=== PATIENT | male | born 1960 ===

== ENCOUNTER 2016-11-12 10:38 | Inpatient (IN) | payer BC ==
[2016-11-12] MEDS ORDERED: Enalaprilat 2.5 MG/2 ML IV ONE (11:20)
--- NOTE | 2016-11-12 11:23 | C.PDOC ---
History Of Present Illness 56 year old male presents to the ED with complaints of sudden onset of left facial droop at approximately 3:30 this morning. He also presents with elevated blood pressure and notes he is compliant with blood pressure medication. Patient 's doctor is Dr. Trivedi. Patient denies trauma, headache, chest pain, dizziness, abdominal pain, fever, nausea, or vomiting. Chief Complaint (Nursing): High Blood Pressure History Per: Patient, Family History/Exam Limitations: no limitations Onset/Duration Of Symptoms: Hrs Current Symptoms Are (Timing): Still Present Associated Symptoms: denies: Chest Pain, Dizziness, Blurred Vision Exacerbating Factor(s): Pos: None Recent travel outside of the [place]: No Past Medical History Reviewed: Historical Data, Nursing Documentation, Vital Signs Vital Signs: Last Vital Signs Temp 98.4 F 11/12/16 18:04 Pulse 62 11/12/16 18:51 Resp 16 11/12/16 18:51 BP 162/94 H 11/12/16 18:51 Pulse Ox 97 11/12/16 18:51 - Medical History PMH: HTN Family History: States: Unknown Family Hx - Social History Hx Alcohol Use: No Hx Substance Use: No - Immunization History Hx Influenza Vaccination: No Review Of Systems Constitutional: Positive for: Other (Left sided facial droop ). Negative for: Fever, Chills Cardiovascular: Negative for: Chest Pain, Palpitations Respiratory: Negative for: Cough, Shortness of Breath Gastrointestinal: Negative for: Nausea, Vomiting Neurological: Negative for: Confusion, Headache, Dizziness Physical Exam - Physical Exam Appears: Non-toxic, No Acute Distress Skin: Warm, Dry Head: Atraumatic Eye(s): bilateral: Normal Inspection, PERRL, EOMI Ear(s): Bilateral: Normal Oral Mucosa: Moist Neck: Supple Chest: Symmetrical, No Deformity Cardiovascular: Other (Patient is bradycardic ) Extremity: Normal ROM, No Tenderness Neurological/Psych: Oriented x3, Normal Speech ED Course And Treatment - Laboratory Results Result Diagrams: 11/12/16 11:30 11/12/16 11:30 ECG: Interpreted By Me, Viewed By Me ECG Rhythm: Sinus Bradycardia, ST/T Changes ECG Interpretation: No Acute Changes Rate From EC O2 Sat by Pulse Oximetry: 95 (room air ) - Other Rad CXR X-Ray: Viewed By Me, Read By Radiologist Interpretation: Accession No. : [id number]. Patient Name / ID : ABHIJEET VASQUEZ / [id number]. Exam Date : 11/12/2016 11:18:42 ( Approved ). Study Comment : Sex / Age : M / 56Y. Creator : Adarsh Ballard MD. Dictator : Adarsh Ballard MD. Band Reamer Machine Operator : Mutual Fund Accountant : Adarsh Ballard MD. Approver2 : Report Date : 11/12/2016 12:53:54. My Comment : . PROCEDURE: CHEST RADIOGRAPH, 1 VIEW. HISTORY: SOB. COMPARISON: None available. FINDINGS: LUNGS: Clear. PLEURA: No pneumothorax or pleural fluid seen. CARDIOVASCULAR: Technical magnification may similarly cardiomegaly though intrinsic cardiac enlargement is not excluded. No pulmonary vascular derangement identified nevertheless. OSSEOUS STRUCTURES: No significant abnormalities. VISUALIZED UPPER ABDOMEN: Normal. OTHER FINDINGS: None. IMPRESSION: No acute infiltrate or pleural effusion identified. Probable portal technical magnification of the cardiac silhouette though cardiomegaly is not completely excluded. Clinically correlate. - CT Scan/US CT HEAD WITHOUT CONTRAST Other Rad Studies (CT/US): Read By Radiologist, Radiology Report Reviewed CT/US Interpretation: HISTORY: left facial palsy, elevated BP. COMPARISON: None available. TECHNIQUE: Axial computed tomography images were obtained through the head/brain without intravenous contrast. Radiation dose: Total exam DLP = 902 mGy-cm. This CT exam was performed using one or more of the following dose reduction techniques: Automated exposure control, adjustment of the mA and/or kV according to patient size, and/or use of iterative reconstruction technique. FINDINGS: HEMORRHAGE: No intracranial hemorrhage. BRAIN: No mass effect or edema. Overall density throughout the bethea and white matter structures above and below the tentorium appears grossly nonfocal. Artifactual skullbase obscure the inferior margins of lateral religion lobe somewhat, particularly at the left side. VENTRICLES: Unremarkable. No hydrocephalus. CALVARIUM: Unremarkable. PARANASAL SINUSES: Unremarkable as visualized. No significant inflammatory changes. MASTOID AIR CELLS: Unremarkable as visualized. No inflammatory changes. OTHER FINDINGS: None. IMPRESSION: Normal CT of the Head. If symptoms persist or worsen consider follow-up MRI or CT is advised. Progress Note: Head CT, blood work, labs, and CXR were ordered. Patient was given enalopril IV x 2, BP still elevated. Catapres was given. Case was d/w pt' s PMD who instructed to keep patient obs to service, Case was d /w who is unavailable now and requested to call . was called, case discussed. Patient was accepted to [facility] for observation. Acyclovir and Prednisone po were given. Disposition - Disposition Disposition: HOSPITALIZED Disposition Time: 17:01 Condition: FAIR - Clinical Impression Clinical Impression: Uncontrolled hypertension, Facial paralysis/[place] palsy - Scribe Statement The provider has reviewed the documentation as recorded by the Scribe Teresa Alex All medical record entries made by the Scribe were at my direction and personally dictated by me. I have reviewed the chart and agree that the record accurately reflects my personal performance of the history, physical exam, medical decision making, and the department course for this patient. I have also personally directed, reviewed, and agree with the discharge instructions and disposition. Decision To Admit - Pt Status Changed To: Hospital Disposition Of: Observation - . Bed Request Type: Regular Admitting Physician: Raz Ogden Patient Diagnosis: Uncontrolled hypertension, Facial paralysis/[place] palsy
[2016-11-12] MEDS ORDERED: Enalaprilat 2.5 MG/2 ML IV STA ×2 (11:34→13:19)
[2016-11-12 11:37] LABS: BASO % 0.6 % (0.0-2.0); EOS % 1.2 % (0.0-4.0); HEMATOCRIT 48.8 % (35.0-51.0); LYMPH # 1.4 K/uL (1.0-4.3); LYMPH % 37.2 % (20.0-40.0); MEAN CELL VOLUME 92.7 fL (80.0-94.0); MEAN CORPUSCULAR HEMOGLOBIN 30.8 pg (27.0-31.0); MEAN CORPUSCULAR HGB CONC 33.2 g/dL (33.0-37.0); MEAN PLATELET VOLUME 9.4 fL (7.2-11.7); MONO # 0.5 K/uL (0.0-0.8); MONO % 14.1 % (0.0-10.0); NRBC % 0.1 % (0.0-2.0); RED CELL DISTRIBUTION WIDTH 14.3 % (11.5-14.5); WHITE BLOOD COUNT 3.7 K/uL (4.8-10.8)
[2016-11-12] MEDS ORDERED: Enalaprilat 2.5 MG/2 ML ONE ×2 (11:37→14:50)
[2016-11-12 11:44] LABS: CHLORIDE 103 mmol/L (98-107); POTASSIUM 3.9 mmol/L (3.6-5.2); SODIUM 144 mmol/L (132-148)
[2016-11-12 11:46] LABS: ALB/GLOB RATIO 1.3 (1.0-2.1); ALKALINE PHOSPHATASE 69 U/L (38-126); AST/SGOT 41 U/L (17-59); BILIRUBIN,TOTAL 0.7 mg/dL (0.2-1.3); CARBON DIOXIDE 33 mmol/L (22-30); GFR AFRICAN-AMERICAN 59; TOTAL PROTEIN 7.7 g/dL (6.3-8.3)
[2016-11-12 11:47] LABS: ALT/SGPT 45 U/L (21-72); BLOOD UREA NITROGEN 15 mg/dL (9-20); CALCIUM 9.6 mg/dl (8.6-10.4); GLUCOSE,RANDOM 89 mg/dL (75-110)
--- NOTE | 2016-11-12 12:26 | CT ---
PROCEDURE: CT HEAD WITHOUT CONTRAST. HISTORY: left facial palsy, elevated BP COMPARISON: None available. TECHNIQUE: Axial computed tomography images were obtained through the head/brain without intravenous contrast. Radiation dose: Total exam DLP = 902 mGy-cm. This CT exam was performed using one or more of the following dose reduction techniques: Automated exposure control, adjustment of the mA and/or kV according to patient size, and/or use of iterative reconstruction technique. FINDINGS: HEMORRHAGE: No intracranial hemorrhage. BRAIN: No mass effect or edema. Overall density throughout the bethea and white matter structures above and below the tentorium appears grossly nonfocal. Artifactual skullbase obscure the inferior margins of lateral buddhism lobe somewhat, particularly at the left side. VENTRICLES: Unremarkable. No hydrocephalus. CALVARIUM: Unremarkable. PARANASAL SINUSES: Unremarkable as visualized. No significant inflammatory changes. MASTOID AIR CELLS: Unremarkable as visualized. No inflammatory changes. OTHER FINDINGS: None. IMPRESSION: Normal CT of the Head. If symptoms persist or worsen consider follow-up MRI or CT is advised.
--- NOTE | 2016-11-12 12:55 | RAD ---
PROCEDURE: CHEST RADIOGRAPH, 1 VIEW HISTORY: SOB COMPARISON: None available. FINDINGS: LUNGS: Clear. PLEURA: No pneumothorax or pleural fluid seen. CARDIOVASCULAR: Technical magnification may similarly cardiomegaly though intrinsic cardiac enlargement is not excluded. No pulmonary vascular derangement identified nevertheless. OSSEOUS STRUCTURES: No significant abnormalities. VISUALIZED UPPER ABDOMEN: Normal. OTHER FINDINGS: None. IMPRESSION: No acute infiltrate or pleural effusion identified. Probable portal technical magnification of the cardiac silhouette though cardiomegaly is not completely excluded. Clinically correlate.
[2016-11-12] MEDS ORDERED: Nitroglycerin 2% Ointment Foilpak UD TOP STA (18:07)
--- NOTE | 2016-11-12 20:35 | CP.PCM.CON ---
History of Present Illness - History of Present Illness History of Present Illness: 56 year old male presents to the ED with complaints of sudden onset of left facial droop at approximately 3:30 this morning. He also presents with elevated blood pressure and notes he is compliant with blood pressure medication. Patient's doctor is Dr. Trivedi. Patient denies trauma, headache, chest pain, dizziness, abdominal pain, fever, nausea, or vomiting. Condition started today with Headache. Chief Complaint (Nursing): Uncontrolled High Blood Pressure, Left Facial Palsy. History Per: Patient, Family History/Exam Limitations: no limitations Onset/Duration Of Symptoms: Hrs Current Symptoms Are (Timing): Still Present Associated Symptoms: denies: Chest Pain, Dizziness, Blurred Vision Exacerbating Factor(s): Pos: None Recent travel outside of the [place]: No Past Medical History Reviewed: Historical Data, Nursing Documentation, Vital Signs Vital Signs: Last Vital Signs Temp 98.4 F 11/12/16 18:04 Pulse 62 11/12/16 18:51 Resp 16 11/12/16 18:51 BP 162/94 H 11/12/16 18:51 Pulse Ox 97 11/12/16 18:51 - Medical History PMH: HTN, CVA treated at [facility] 4 years ago. Family History: Mother has a History of CVA and DM - Social History Hx Alcohol Use: No Hx Substance Use: No - Immunization History Hx Influenza Vaccination: No Review Of Systems Constitutional: Positive for: Other (Left sided facial droop ). Negative for: Fever, Chills Cardiovascular: Negative for: Chest Pain, Palpitations Respiratory: Negative for: Cough, Shortness of Breath Gastrointestinal: Negative for: Nausea, Vomiting Neurological: Negative for: Confusion, Headache, Dizziness ECG Rhythm: Sinus Bradycardia, ST/T Changes ECG Interpretation: No Acute Changes Rate From EC CT Brain IMPRESSION: Normal CT of the Head. Past Patient History - Past Social History Smoking Status: Never Smoked - CARDIAC Hx Hypertension: Yes - PSYCHIATRIC Hx Substance Use: No - SURGICAL HISTORY Hx Surgeries: No - ANESTHESIA Hx Anesthesia: No Meds Allergies/Adverse Reactions: Allergies Allergy/AdvReac Type Severity Reaction Status Date / Time No Known Allergies Allergy Verified 11/12/16 10:40 - Medications Medications: Current Medications Acyclovir (Zovirax) 400 mg PO BID [facility] Amlodipine Besylate (Norvasc) 10 mg PO DAILY [facility] Enoxaparin Sodium (Lovenox) 40 mg SC DAILY [facility] Losartan Potassium (Cozaar) 100 mg PO DAILY [facility] Prednisone (Prednisone Tab) 40 mg PO DAILY [facility] Stop: 11/17/16 23:59 Rosuvastatin Calcium (Crestor) 20 mg PO HS [facility] Physical Exam - Neurological Exam Additional comments: Muscular man, exercising daily. He is a [employer] in [place], [place] Mental Status: Awake, Alert, Oriented x 3, normal memory X3, normal cognition, fluent coherent speech. Cranial Nerves II to XII; Left Facial Palsy, nasolabial folds are poorly seen on the left side. Pupils are equal reactive to light, normal extra ocular eye movements. Tongue is central. Normal swallowing Feeling change in his taste. Motor: Normal Tone, Power, Muscle Bulk DTR 0 to 1/4 Toes are down going by plantar stimulation. Sensory: No Deficits Cerebellar: Normal FNT Stature and Gait: Reported to be Normal. Results - Vital Signs Recent Vital Signs: Last Vital Signs Temp 98.4 F 11/12/16 18:04 Pulse 84 11/12/16 20:06 Resp 18 11/12/16 20:06 BP 174/89 H 11/12/16 20:06 Pulse Ox 95 11/12/16 20:06 - Labs Result Diagrams: 11/12/16 11:30 11/12/16 11:30 Assessment & Plan (1) Facial paralysis/[place] palsy Assessment and Plan: Acute Left Side Facial Palsy Status: Acute (2) Uncontrolled hypertension Status: Acute (3) CVA (cerebral vascular accident) Assessment and Plan: Old history of CVA versus TIA 4 years ago. CVA must be ruled out and all SURGERY NURSE causes of facial palsy need to be ruled out including Central Nervous system masses. Work up for CVA and Seizures. Status: Acute
[2016-11-13 10:07] LABS: THYROID STIMULATING HORMONE 0.91 mIU/L (0.46-4.68)
[2016-11-13] MEDS: Enoxaparin 40 mg Syringe SC SCH (10:33)
--- NOTE | 2016-11-13 23:42 | CP.PCM.PN ---
Subjective - Date & Time of Evaluation Date of Evaluation: 11/13/16 Time of Evaluation: 21:00 - Subjective Subjective: No change in his condition. His labs show Normal Lipid Profile and non reactive RPR. He is receiving his Oral Prednisone and Oral Acyclovir. No hemiparesis. Objective - Vital Signs/Intake and Output Vital Signs (last 24 hours): Temp Pulse Resp BP Pulse Ox 98.2 F 88 20 146/76 96 11/13/16 15:06 11/13/16 16:51 11/13/16 15:06 11/13/16 16:51 11/13/16 15:06 Intake and Output: 11/13/16 11/14/16 18:59 06:59 Intake Total 480 400 Balance 480 400 - Medications Medications: Current Medications Acyclovir (Zovirax) 400 mg PO BID [facility] Last Admin: 11/13/16 17:33 Dose: 400 mg Amlodipine Besylate (Norvasc) 10 mg PO DAILY [facility] Last Admin: 11/13/16 10:33 Dose: 10 mg Enoxaparin Sodium (Lovenox) 40 mg SC DAILY [facility] Last Admin: 11/13/16 10:33 Dose: Not Given Losartan Potassium (Cozaar) 100 mg PO DAILY [facility] Last Admin: 11/13/16 10:33 Dose: 100 mg Pneumococcal Polyvalent Vaccine (Pneumovax 23 Vaccine) 0.5 ml IM .ONCE ONE Stop: 11/15/16 10:01 Prednisone (Prednisone Tab) 40 mg PO DAILY [facility] Stop: 11/17/16 23:59 Last Admin: 11/13/16 10:33 Dose: 40 mg Rosuvastatin Calcium (Crestor) 20 mg PO HS [facility] Last Admin: 11/13/16 21:43 Dose: 20 mg - Labs Labs: PT 11.1 SECONDS (9.7-12.2) 11/12/16 11:30 INR 1.0 11/12/16 11:30 APTT 35 SECONDS (21-34) H 11/12/16 11:30 Assessment and Plan (1) Facial paralysis/[place] palsy Status: Acute (2) Uncontrolled hypertension Status: Acute (3) CVA (cerebral vascular accident) Status: Acute
--- NOTE | 2016-11-13 23:49 | CP.PCM.HP ---
Past Patient History - Past Medical History & Family History Past Medical History?: Yes - Past Social History Smoking Status: Never Smoked - CARDIAC Hx Hypertension: Yes - PULMONARY Hx Respiratory Disorders: No - NEUROLOGICAL Hx Neurological Disorder: Yes Other/Comment: Pt states he had a previous stroke in [address] [facility], but unsure of what type of stoke - MUSCULOSKELETAL/RHEUMATOLOGICAL Hx Falls: No - PSYCHIATRIC Hx Substance Use: No - SURGICAL HISTORY Hx Surgeries: Yes Hx Herniorrhaphy: Yes - ANESTHESIA Hx Anesthesia: Yes Hx Anesthesia Reactions: No Hx Malignant Hyperthermia: No Meds Allergies/Adverse Reactions: Allergies Allergy/AdvReac Type Severity Reaction Status Date / Time No Known Allergies Allergy Verified 11/12/16 10:40 Results - Vital Signs Recent Vital Signs: Last Vital Signs Temp 98.2 F 11/13/16 15:06 Pulse 88 11/13/16 16:51 Resp 20 11/13/16 15:06 BP 146/76 11/13/16 16:51 Pulse Ox 96 11/13/16 15:06 - Labs Result Diagrams: 11/12/16 11:30 11/12/16 11:30 Labs: Laboratory Results - last 24 hr 11/13/16 11/13/16 09:11 09:11 Triglycerides 81 Cholesterol 185 LDL Cholesterol Direct 123 HDL Cholesterol 51 TSH 3rd Generation 0.91 RPR Nonreactive
--- NOTE | 2016-11-14 03:32 | HP ---
CHIEF COMPLAINT: Left-sided facial droop. HISTORY OF PRESENT ILLNESS: This is a 56-year-old male with history of hypertension, noncompliant with his diet, medications and followup. Around 3:30 in the morning, he developed acute onset of left-sided facial droop and the patient had hard time closing his left eye, his face has twisted to the right side and he is unable to hold liquids on left side of the mouth and he has altered taste in the mouth. He is a good historian. He denied any history of seizure-like activity. He denied any tingling, numbness, paresthesia of the arm and legs, but he had numbness of the face and he feels irritation in the eyes. He denies any past history of Lyme's disease. He denied any history of rash. He denies any fevers, chills, or rigors. He denied any nausea, vomiting, or diarrhea. He denied any polyuria, polydipsia, polyplegia. He denied any history of hematuria or pyuria. There is no history of trauma, fall, or loss of consciousness. There is no cough or sore throat or runny nose. PAST SURGICAL HISTORY: CVA treated 4 years ago, hypertension. SOCIAL HISTORY: Nonsmoker, non-ETOH user. CURRENT MEDICATIONS: Unknown. PHYSICAL EXAMINATION: GENERAL: A middle aged male in no acute distress with facial asymmetry, face has twisted to right side with flat left nasolabial fold. VITAL SIGNS: Blood pressure is 174/89, pulse 64, respiratory rate 18 and temperature is 98.4. SKIN: Warm. No bruising. No purpura. No petechiae. HEENT: Atraumatic and normocephalic. Negative pallor. Negative jaundice. Extraocular movements are intact. NECK: Supple. Flat neck veins. No JVD. No lymph node. No thyromegaly. No carotid bruits. CHEST: Chest wall bilaterally symmetrical expansion. LUNGS: Bilaterally clear. No rales, no rhonchi. CARDIOVASCULAR: S1 and S2 regular. No heaves noted. ABDOMEN: Soft and nontender. Bowel sounds are positive. RECTAL: No masses. No bleeding. EXTREMITIES: No clubbing, cyanosis or edema. CENTRAL NERVOUS SYSTEM: Awake, alert, and oriented x3. Has left-sided weakness, although his face is twisted to right side, unable to close left eye. ASSESSMENT: 1. Left seventh nerve palsy, slight Lester's palsy. 2. Hypertension, uncontrolled. PLAN: Admit, neuro checks, detailed orders written. I personally seen and examined the patient. History of present illness obtained. Raz Ogden MD
[2016-11-14] MEDS: Enoxaparin 40 mg Syringe SC SCH (09:20)
[2016-11-14] MEDS ORDERED: Nitroglycerin 2% Ointment Foilpak UD TOP ONE (17:10)
--- NOTE | 2016-11-14 19:22 | CP.PCM.PN ---
Subjective - Date & Time of Evaluation Date of Evaluation: 11/14/16 Time of Evaluation: 19:15 - Subjective Subjective: He is running a Systolic high Blood Pressure. His left facial weakness is almost the same. He needs Physical Therapy and to exercise. His Hb A1C is normal and PSA is normal. More tests are to follow, including MRI Brain, EEG, Carotid Doppler, Hepatitis Panel, Lyme disease, HSV Type I and II PCR, Herpes Zoster, [place]. TB is not a big threat here due to negative CXR and negative history and Family History. No weakness in his extremities. Objective - Vital Signs/Intake and Output Vital Signs (last 24 hours): Temp Pulse Resp BP Pulse Ox 98.4 F 92 H 20 176/75 H 95 11/14/16 15:58 11/14/16 18:42 11/14/16 15:58 11/14/16 18:42 11/14/16 15:58 Intake and Output: 11/14/16 11/15/16 18:59 06:59 Intake Total 600 Balance 600 - Medications Medications: Current Medications Acyclovir (Zovirax) 400 mg PO BID [facility] Last Admin: 11/14/16 17:32 Dose: 400 mg Amlodipine Besylate (Norvasc) 10 mg PO DAILY [facility] Last Admin: 11/14/16 10:35 Dose: 10 mg Artificial Tears (Artificial Tears) 0.05 ml OS TID [facility] Enoxaparin Sodium (Lovenox) 40 mg SC DAILY [facility] Last Admin: 11/14/16 09:20 Dose: 40 mg Losartan Potassium (Cozaar) 100 mg PO DAILY [facility] Last Admin: 11/14/16 09:19 Dose: 100 mg Pneumococcal Polyvalent Vaccine (Pneumovax 23 Vaccine) 0.5 ml IM .ONCE ONE Stop: 11/15/16 10:01 Prednisone (Prednisone Tab) 40 mg PO DAILY [facility] Stop: 11/17/16 23:59 Last Admin: 11/14/16 09:25 Dose: 40 mg Rosuvastatin Calcium (Crestor) 20 mg PO HS [facility] Last Admin: 11/13/16 21:43 Dose: 20 mg - Labs Labs: PT 11.1 SECONDS (9.7-12.2) 11/12/16 11:30 INR 1.0 11/12/16 11:30 APTT 35 SECONDS (21-34) H 09/02/17 11:30 Assessment and Plan (1) Facial paralysis/[place] palsy Status: Acute (2) Uncontrolled hypertension Status: Acute (3) CVA (cerebral vascular accident) Status: Acute
[2016-11-14] MEDS ORDERED: Tuberculin 5 Units/0.1 ml Inj ID ONE (20:30)
[2016-11-14] MEDS: Aritificial Tears (15ml) OS SCH (21:13)
[2016-11-15] MEDS ORDERED: Pneumococcal 23-Valent Vaccine IM ONE (10:00)
[2016-11-15] MEDS: Enoxaparin 40 mg Syringe SC SCH (10:01)
[2016-11-15] MEDS: Aritificial Tears (15ml) OS SCH ×3 (10:05→21:51)
[2016-11-15] MEDS ORDERED: Aluminum Hydroxide/Magnesium Hydroxide Susp (30 mL) PO ONE (15:41)
[2016-11-15] MEDS: Pantoprazole 40 mg EC Tab PO SCH (16:13)
[2016-11-15] MEDS ORDERED: Nitroglycerin 2% Ointment Foilpak UD TOP STA (16:45)
[2016-11-15] MEDS ORDERED: Aritificial Tears (15ml) OS SCH (20:00)
--- NOTE | 2016-11-15 21:40 | CP.PCM.PN ---
Subjective - Date & Time of Evaluation Date of Evaluation: 11/15/16 Time of Evaluation: 21:00 - Subjective Subjective: He is stable and Physical Therapy is ordered since admitted. He has a Left Lester's Palsy. MRI Brain is ordered. Carotid Doppler is performed. No focal weakness in the Extremities. PPD is planted as a part of his work up due to steroid administration. Objective - Vital Signs/Intake and Output Vital Signs (last 24 hours): Temp Pulse Resp BP Pulse Ox 98.2 F 86 18 166/72 H 96 11/15/16 20:50 11/15/16 20:50 11/15/16 20:50 11/15/16 20:50 11/15/16 20:50 - Medications Medications: Current Medications Acyclovir (Zovirax) 400 mg PO BID [facility] Last Admin: 11/15/16 17:58 Dose: 400 mg Amlodipine Besylate (Norvasc) 10 mg PO DAILY [facility] Last Admin: 11/15/16 09:58 Dose: 10 mg Artificial Tears (Artificial Tears) 0.05 ml OS TID [facility] Last Admin: 11/15/16 13:36 Dose: 1 drop Enoxaparin Sodium (Lovenox) 40 mg SC DAILY [facility] Last Admin: 11/15/16 10:01 Dose: 40 mg Losartan Potassium (Cozaar) 100 mg PO DAILY [facility] Last Admin: 11/15/16 10:04 Dose: 100 mg Nitroglycerin (Nitro-Bid 2% Oint) 1 ea TOP Q6 PRN PRN Reason: Systolic Blood Pressure Pantoprazole Sodium (Protonix Ec Tab) 40 mg PO DAILY [facility] Last Admin: 11/15/16 16:13 Dose: 40 mg Prednisone (Prednisone Tab) 40 mg PO DAILY [facility] Stop: 11/17/16 23:59 Last Admin: 11/15/16 09:59 Dose: 40 mg Rosuvastatin Calcium (Crestor) 20 mg PO HS [facility] Last Admin: 11/14/16 21:03 Dose: 20 mg - Labs Labs: PT 11.1 SECONDS (9.7-12.2) 11/12/16 11:30 INR 1.0 11/12/16 11:30 APTT 35 SECONDS (21-34) H 11/12/16 11:30 Assessment and Plan (1) Facial paralysis/[place] palsy Status: Acute (2) Uncontrolled hypertension Status: Acute (3) CVA (cerebral vascular accident) Status: Acute
--- NOTE | 2016-11-15 23:50 | CP.PCM.PN ---
Subjective - Date & Time of Evaluation Date of Evaluation: 11/14/16 - Subjective Subjective: facial asymmetry, feels better, no sob, no chest pain, no cough Objective - Vital Signs/Intake and Output Vital Signs (last 24 hours): Temp Pulse Resp BP Pulse Ox 98.2 F 86 18 166/72 H 96 11/15/16 20:50 11/15/16 20:50 11/15/16 20:50 11/15/16 20:50 11/15/16 20:50 Intake and Output: 11/15/16 11/16/16 18:59 06:59 Intake Total 1000 Balance 1000 - Medications Medications: Current Medications Acyclovir (Zovirax) 400 mg PO BID [facility] Last Admin: 11/15/16 17:58 Dose: 400 mg Artificial Tears (Artificial Tears) 0.05 ml OS TID [facility] Last Admin: 11/15/16 21:51 Dose: 1 drop Enoxaparin Sodium (Lovenox) 40 mg SC DAILY [facility] Last Admin: 11/15/16 10:01 Dose: 40 mg Losartan Potassium (Cozaar) 100 mg PO DAILY [facility] Last Admin: 11/15/16 10:04 Dose: 100 mg Nifedipine (Procardia Xl) 90 mg PO DAILY [facility] Nitroglycerin (Nitro-Bid 2% Oint) 1 ea TOP Q6 PRN PRN Reason: Systolic Blood Pressure Pantoprazole Sodium (Protonix Ec Tab) 40 mg PO DAILY [facility] Last Admin: 11/15/16 16:13 Dose: 40 mg Prednisone (Prednisone Tab) 40 mg PO DAILY [facility] Stop: 11/17/16 23:59 Last Admin: 11/15/16 09:59 Dose: 40 mg Rosuvastatin Calcium (Crestor) 20 mg PO HS [facility] Last Admin: 11/15/16 21:52 Dose: 20 mg - Labs Labs: PT 11.1 SECONDS (9.7-12.2) 11/12/16 11:30 INR 1.0 11/12/16 11:30 APTT 35 SECONDS (21-34) H 11/12/16 11:30 - Constitutional Appears: Non-toxic, No Acute Distress - Head Exam Head Exam: ATRAUMATIC, NORMAL INSPECTION, NORMOCEPHALIC - Eye Exam Eye Exam: EOMI, Normal appearance Pupil Exam: NORMAL ACCOMODATION, PERRL - ENT Exam ENT Exam: Mucous Membranes Moist - Neck Exam Neck Exam: Normal Inspection - Respiratory Exam Respiratory Exam: Clear to Ausculation Bilateral, NORMAL BREATHING PATTERN - Cardiovascular Exam Cardiovascular Exam: +S1, +S2 - GI/Abdominal Exam GI & Abdominal Exam: Normal Bowel Sounds - Rectal Exam Rectal Exam: NORMAL INSPECTION - Extremities Exam Extremities Exam: Normal Capillary Refill, Normal Inspection - Neurological Exam Neurological Exam: Alert, Awake, Motor Sensory Deficit, Oriented x3 - Psychiatric Exam Psychiatric exam: Normal Affect Assessment and Plan (1) CVA (cerebral vascular accident) Status: Suspected (2) Facial paralysis/[place] palsy Status: Acute (3) Uncontrolled hypertension Status: Acute
--- NOTE | 2016-11-15 23:52 | CP.PCM.PN ---
Subjective - Date & Time of Evaluation Date of Evaluation: 11/15/16 - Subjective Subjective: AWAIT MRI, NO FEVER Objective - Vital Signs/Intake and Output Vital Signs (last 24 hours): Temp Pulse Resp BP Pulse Ox 98.2 F 86 18 166/72 H 96 11/15/16 20:50 11/15/16 20:50 11/15/16 20:50 11/15/16 20:50 11/15/16 20:50 Intake and Output: 11/15/16 11/16/16 18:59 06:59 Intake Total 1000 Balance 1000 - Medications Medications: Current Medications Acyclovir (Zovirax) 400 mg PO BID [facility] Last Admin: 11/15/16 17:58 Dose: 400 mg Artificial Tears (Artificial Tears) 0.05 ml OS TID [facility] Last Admin: 11/15/16 21:51 Dose: 1 drop Enoxaparin Sodium (Lovenox) 40 mg SC DAILY [facility] Last Admin: 11/15/16 10:01 Dose: 40 mg Losartan Potassium (Cozaar) 100 mg PO DAILY [facility] Last Admin: 11/15/16 10:04 Dose: 100 mg Nifedipine (Procardia Xl) 90 mg PO DAILY [facility] Nitroglycerin (Nitro-Bid 2% Oint) 1 ea TOP Q6 PRN PRN Reason: Systolic Blood Pressure Pantoprazole Sodium (Protonix Ec Tab) 40 mg PO DAILY [facility] Last Admin: 11/15/16 16:13 Dose: 40 mg Prednisone (Prednisone Tab) 40 mg PO DAILY [facility] Stop: 11/17/16 23:59 Last Admin: 11/15/16 09:59 Dose: 40 mg Rosuvastatin Calcium (Crestor) 20 mg PO [facility] Last Admin: 11/15/16 21:52 Dose: 20 mg - Labs Labs: PT 11.1 SECONDS (9.7-12.2) 11/12/16 11:30 INR 1.0 11/12/16 11:30 APTT 35 SECONDS (21-34) H 11/12/16 11:30 - Constitutional Appears: Non-toxic, No Acute Distress - Head Exam Head Exam: ATRAUMATIC, NORMAL INSPECTION, NORMOCEPHALIC - Eye Exam Eye Exam: EOMI, Normal appearance Pupil Exam: NORMAL ACCOMODATION, PERRL - ENT Exam ENT Exam: Mucous Membranes Moist, Normal Exam - Neck Exam Neck Exam: Full ROM, Normal Inspection - Respiratory Exam Respiratory Exam: NORMAL BREATHING PATTERN - Cardiovascular Exam Cardiovascular Exam: REGULAR RHYTHM, +S1, +S2 - GI/Abdominal Exam GI & Abdominal Exam: Soft, Normal Bowel Sounds - Rectal Exam Rectal Exam: NORMAL INSPECTION - Extremities Exam Extremities Exam: Full ROM, Normal Capillary Refill, Normal Inspection - Back Exam Back Exam: NORMAL INSPECTION - Neurological Exam Neurological Exam: Alert, Awake, Motor Sensory Deficit, Oriented x3 Neuro motor strength exam: Left Upper Extremity: 5, Right Upper Extremity: 5, Left Lower Extremity: 5, Right Lower Extremity: 5 - Psychiatric Exam Psychiatric exam: Normal Affect Assessment and Plan (1) CVA (cerebral vascular accident) Status: Suspected (2) Facial paralysis/[place] palsy Status: Acute (3) Uncontrolled hypertension Status: Acute
--- NOTE | 2016-11-16 01:21 | EEG ---
DATE: The record was obtained to rule out seizures and to rule out encephalopathy. The patient is having uncontrolled hypertension. He has left facial palsy. The record is symmetrically equal on both sides with velocity of 8 to 9 cycles per second. The waves are fairly formed and fairly organized with specific distribution, moderate in amplitude, reactive to eye opening by attenuation. There were no abnormal discharges. No spike, no poly spikes no sharp wave, no focal slowing, no paroxysmal discharges. There were an EKG artifact, eye movement artifacts, electrode artifacts, and muscle movement artifacts. There were periods of drowsiness during which attenuation and slowing of the record were seen and theta waves were seen. There were no periods of sleep. The photic stimulation was performed, did not produce any changes. Hyperventilation was omitted. In summary, this is a normal awake and drowsy EEG. Clinical correlation is recommended. Althea Pineda MD JAZ
[2016-11-16 01:38] VITALS: RESP 20
[2016-11-16] MEDS: Pantoprazole 40 mg EC Tab PO SCH (09:39)
[2016-11-16] MEDS: NIFEdipine 90 mg ER Tab PO SCH (09:40)
[2016-11-16] MEDS: Enoxaparin 40 mg Syringe SC SCH (09:44)
[2016-11-16] MEDS: Aritificial Tears (15ml) OS SCH ×4 (10:30→17:49)
--- NOTE | 2016-11-16 10:38 | VASCLAB ---
PROCEDURE: HISTORY: R/O CVA Acute Left Facial Palsy COMPARISON: None available. TECHNIQUE: Grayscale and duplex Doppler evaluation of the cervical carotid and vertebral arteries were performed. The common carotid, carotid bifurcations and cervical Internal Carotid Artery (ICA) and proximal External Carotid Artery (ECA) were evaluated. The vertebral arteries were evaluated for gross patency and flow direction. Report prepared by Addison Angeles, BS, RVT FINDINGS: RIGHT CAROTID ARTERIES: 1. Common Carotid Artery: No significant focal plaque formation of the right common carotid artery. Maximum Peak Systolic velocity: 109 cm/sec: End-diastolic velocity 28 cm/sec. 2. Carotid Bifurcation: plaque formation. Maximum Peak Systolic velocity: 72 cm/sec: End-diastolic velocity 15 cm/sec. 3. Internal Carotid Artery: Plaque description: 3.1. Proximal Segment: Peak systolic velocity 52 cm/sec: End-diastolic velocity 17 cm/sec - % stenosis 0-15% 3.2. Middle Segment: Peak systolic velocity 67 cm/sec: End-diastolic velocity 21 cm/sec - % stenosis 0-15% 3.3. Distal Segment: Peak systolic velocity 69 cm/sec: End-diastolic velocity 28 cm/sec - % stenosis 0-15% 4. External Carotid Artery: No significant focal plaque formation. Peak systolic velocity 146 cm/sec 5. ICA/CCA Ratio: 0.7 LEFT CAROTID ARTERIES: 1. Common Carotid Artery: No significant focal plaque formation of the left common carotid artery. Maximum Peak Systolic velocity: 100 cm/sec: End-diastolic velocity 19 cm/sec. 2. Carotid Bifurcation: plaque formation. Maximum Peak Systolic velocity: 82 cm/sec: End-diastolic velocity 15 cm/sec. 3. Internal Carotid Artery: Plaque description: 3.1. Proximal Segment: Peak systolic velocity 68 cm/sec: End-diastolic velocity 19 cm/sec - % stenosis 0-15% 3.2. Middle Segment: Peak systolic velocity 90 cm/sec: End-diastolic velocity 34 cm/sec - % stenosis 0-15% 3.3. Distal Segment: Peak systolic velocity 46 cm/sec: End-diastolic velocity 15 cm/sec - % stenosis 0-15% 4. External Carotid Artery: No significant focal plaque formation. Peak systolic velocity 133 cm/sec 5. ICA/CCA Ratio: 0.9 VERTEBRAL ARTERIES: 1. Right Vertebral Artery: The right vertebral artery flow direction is antegrade. 2. Left Vertebral Artery: The left vertebral artery flow direction is antegrade. OTHER FINDINGS: 1. Right Brachial Blood pressure: 164 mmHg. 2. Left Brachial Blood pressure: 160 mmHg. IMPRESSION: RIGHT: Duplex scan does not suggest hemodynamically significant stenosis of the right extracranial carotid arteries. LEFT: Duplex scan does not suggest hemodynamically significant stenosis of the left extracranial carotid arteries.
[2016-11-16 11:57] LABS: ANA TITER 1:40
--- NOTE | 2016-11-16 13:02 | MRI ---
PROCEDURE: MRI BRAIN WITHOUT CONTRAST HISTORY: Acute Right Facial Palsy COMPARISON: None. TECHNIQUE: Multiplanar, multisequence MR images of the brain were obtained without intravenous contrast enhancement. FINDINGS: HEMORRHAGE: None DWI: No evidence of an acute or early subacute infarction. BRAIN PARENCHYMA: No cortical edema or mass-effect is appreciated there is no suspicious extra-axial fluid collection. There is mild expansion of the ventricular sulcal and cisternal spaces compatible with minimal diffuse cerebral atrophy. Further, periventricular and centrum semiovale as well as occasional subcortical white matter changes are identified likely reflecting early chronic microangiopathy. Corpus callosum appears normal as well as the remaining midline brain anatomy including the brainstem. No cerebellar findings. VENTRICLES: Unremarkable. No hydrocephalus. CRANIUM: Unremarkable. ORBITS: Grossly unremarkable. PARANASAL SINUSES/MASTOIDS: Limited sinus disease is appreciate the posterior right ethmoid air cells. VASCULAR SYSTEM: Skull base flow voids intact. OTHER FINDINGS: None. IMPRESSION: 1. No mass-effect, cortical edema, acute or subacute brain infarction or intracranial hemorrhage. 2. Age related neuro degenerative changes are identified as discussed above.
--- NOTE | 2016-11-16 16:06 | CP.PCM.PN ---
Subjective - Date & Time of Evaluation Date of Evaluation: 11/16/16 Time of Evaluation: 11:40 - Subjective Subjective: Pt seen today, awake, alert, ox3, denies any headache, dizziness, blurred vision , N/V/D ,+ facial droop Objective - Vital Signs/Intake and Output Vital Signs (last 24 hours): Temp Pulse Resp BP Pulse Ox 98.2 F 65 20 140/78 97 11/16/16 07:39 11/16/16 07:39 11/16/16 07:39 11/16/16 09:30 11/16/16 07:39 Intake and Output: 11/16/16 11/16/16 06:59 18:59 Intake Total 1240 Balance 1240 - Medications Medications: Current Medications Acyclovir (Zovirax) 400 mg PO BID [facility] Last Admin: 11/16/16 09:43 Dose: 400 mg Artificial Tears (Artificial Tears) 0.05 ml OS TID [facility] Last Admin: 11/16/16 15:00 Dose: 1 drop Enoxaparin Sodium (Lovenox) 40 mg SC DAILY [facility] Last Admin: 11/16/16 09:44 Dose: 40 mg Losartan Potassium (Cozaar) 100 mg PO DAILY [facility] Last Admin: 11/16/16 09:38 Dose: 100 mg Nifedipine (Procardia Xl) 90 mg PO DAILY [facility] Last Admin: 11/16/16 09:40 Dose: 90 mg Nitroglycerin (Nitro-Bid 2% Oint) 1 ea TOP Q6 PRN PRN Reason: Systolic Blood Pressure Pantoprazole Sodium (Protonix Ec Tab) 40 mg PO DAILY [facility] Last Admin: 11/16/16 09:39 Dose: 40 mg Pneumococcal Polyvalent Vaccine (Pneumovax 23 Vaccine) 0.5 ml IM .ONCE ONE Stop: 11/18/16 10:01 Prednisone (Prednisone Tab) 40 mg PO DAILY [facility] Stop: 11/17/16 23:59 Last Admin: 11/16/16 09:38 Dose: 40 mg Rosuvastatin Calcium (Crestor) 20 mg PO HS [facility] Last Admin: 11/15/16 21:52 Dose: 20 mg - Labs Labs: PT 11.1 SECONDS (9.7-12.2) 11/12/16 11:30 INR 1.0 11/12/16 11:30 APTT 35 SECONDS (21-34) H 11/12/16 11:30 - Constitutional Appears: Well, No Acute Distress - Respiratory Exam Respiratory Exam: Clear to Ausculation Bilateral, NORMAL BREATHING PATTERN - Cardiovascular Exam Cardiovascular Exam: REGULAR RHYTHM, +S1, +S2 Assessment and Plan - Assessment and Plan (Free Text) Assessment: 56 yr old male admitted for uncontrolled hypertension, Facial paralysis/[place] palsy BP controlled with medication carotid doppler- negative MRI-. No mass-effect, cortical edema, acute or subacute brain infarction or intracranial hemorrhage. Age related neuro degenerative changes are identified as discussed above. d/w Dr. Ogden, cleared for discharge home and f/u with Dr. Ogden office in 1 week Discharge plan discussed wiht patient , who understands and agrees with plan . .
[2016-11-16] MEDS ORDERED: Pneumococcal 23-Valent Vaccine IM ONE (17:15)
[2016-11-16] MEDS: Nitroglycerin 2% Ointment Foilpak UD TOP PRN (17:50)
--- NOTE | 2016-11-16 23:35 | CP.PCM.PN ---
Subjective - Date & Time of Evaluation Date of Evaluation: 11/16/16 - Subjective Subjective: NO CHEST PAIN, L SIDE OF FACE IS WEAK Objective - Vital Signs/Intake and Output Vital Signs (last 24 hours): Temp Pulse Resp BP Pulse Ox 97.9 F 94 H 20 155/91 H 96 11/16/16 16:00 11/16/16 21:25 11/16/16 17:50 11/16/16 21:25 11/16/16 17:50 Intake and Output: 11/16/16 11/17/16 18:59 06:59 Intake Total 480 Balance 480 - Medications Medications: Current Medications Acyclovir (Zovirax) 400 mg PO BID [facility] Last Admin: 11/16/16 17:55 Dose: 400 mg Artificial Tears (Artificial Tears) 0.05 ml OS TID [facility] Last Admin: 11/16/16 17:49 Dose: 1 drop Enoxaparin Sodium (Lovenox) 40 mg SC DAILY [facility] Last Admin: 11/16/16 09:44 Dose: 40 mg Losartan Potassium (Cozaar) 100 mg PO DAILY [facility] Last Admin: 11/16/16 09:38 Dose: 100 mg Nifedipine (Procardia Xl) 90 mg PO DAILY [facility] Last Admin: 11/16/16 09:40 Dose: 90 mg Nitroglycerin (Nitro-Bid 2% Oint) 1 ea TOP Q6 PRN PRN Reason: Systolic Blood Pressure Last Admin: 11/16/16 17:50 Dose: 1 ea Pantoprazole Sodium (Protonix Ec Tab) 40 mg PO DAILY [facility] Last Admin: 11/16/16 09:39 Dose: 40 mg Prednisone (Prednisone Tab) 40 mg PO DAILY [facility] Stop: 11/17/16 23:59 Last Admin: 11/16/16 09:38 Dose: 40 mg Rosuvastatin Calcium (Crestor) 20 mg PO HS [facility] Last Admin: 11/16/16 21:50 Dose: 20 mg - Labs Labs: PT 11.1 SECONDS (9.7-12.2) 11/12/16 11:30 INR 1.0 11/12/16 11:30 APTT 35 SECONDS (21-34) H 11/12/16 11:30 - Constitutional Appears: Non-toxic, No Acute Distress - Head Exam Head Exam: ATRAUMATIC, NORMAL INSPECTION, NORMOCEPHALIC - Eye Exam Eye Exam: EOMI, Normal appearance, PERRL - ENT Exam ENT Exam: Mucous Membranes Moist, Normal Exam - Respiratory Exam Respiratory Exam: Clear to Ausculation Bilateral, NORMAL BREATHING PATTERN - Cardiovascular Exam Cardiovascular Exam: REGULAR RHYTHM, +S1, +S2 - GI/Abdominal Exam GI & Abdominal Exam: Soft, Normal Bowel Sounds - Extremities Exam Extremities Exam: Normal Capillary Refill - Neurological Exam Neurological Exam: Alert, Awake, Normal Gait, Oriented x3. absent: CN II-XII Intact (L FN PALSY) Assessment and Plan (1) CVA (cerebral vascular accident) Status: Suspected (2) Facial paralysis/[place] palsy Status: Acute (3) Uncontrolled hypertension Status: Acute
[2016-11-17 00:18] VITALS: O2SAT 97
--- NOTE | 2016-11-17 00:29 | CP.PCM.PN ---
Subjective - Date & Time of Evaluation Date of Evaluation: 11/16/16 Time of Evaluation: 21:00 - Subjective Subjective: Patient MRI Brain is not showing any acute findings and is negative for CVA. 1. No mass-effect, cortical edema, acute or subacute brain infarction or intracranial hemorrhage. 2. Age related neuro degenerative changes are identified as discussed above. EEG is negative, Carotid Doppler is negative bilaterally. He is doing better and feels comfortable after PT is started. HSV I and II are elevated, HZV Abs is Positive. Negative HIV I and II Abs. PAULINE Titer is non significant 1:40, negative Rh Factor, Negative Cardiac Troponin. He is cleared by neurology and must have Massive PT for his Left Lester' s Palsy as an Out Patient to avoid permanent damage. Objective - Vital Signs/Intake and Output Vital Signs (last 24 hours): Temp Pulse Resp BP Pulse Ox 97.8 F 90 20 162/88 H 97 11/17/16 00:00 11/17/16 00:00 11/17/16 00:00 11/17/16 00:00 11/17/16 00:00 Intake and Output: 11/16/16 11/17/16 18:59 06:59 Intake Total 480 Balance 480 - Medications Medications: Current Medications Acyclovir (Zovirax) 400 mg PO BID [facility] Last Admin: 11/16/16 17:55 Dose: 400 mg Artificial Tears (Artificial Tears) 0.05 ml OS TID [facility] Last Admin: 11/16/16 17:49 Dose: 1 drop Enoxaparin Sodium (Lovenox) 40 mg SC DAILY [facility] Last Admin: 11/16/16 09:44 Dose: 40 mg Losartan Potassium (Cozaar) 100 mg PO DAILY [facility] Last Admin: 11/16/16 09:38 Dose: 100 mg Nifedipine (Procardia Xl) 90 mg PO DAILY [facility] Last Admin: 11/16/16 09:40 Dose: 90 mg Nitroglycerin (Nitro-Bid 2% Oint) 1 ea TOP Q6 PRN PRN Reason: Systolic Blood Pressure Last Admin: 11/16/16 17:50 Dose: 1 ea Pantoprazole Sodium (Protonix Ec Tab) 40 mg PO DAILY [facility] Last Admin: 11/16/16 09:39 Dose: 40 mg Prednisone (Prednisone Tab) 40 mg PO DAILY [facility] Stop: 11/17/16 23:59 Last Admin: 11/16/16 09:38 Dose: 40 mg Rosuvastatin Calcium (Crestor) 20 mg PO HS [facility] Last Admin: 11/16/16 21:50 Dose: 20 mg - Labs Labs: PT 11.1 SECONDS (9.7-12.2) 11/12/16 11:30 INR 1.0 11/12/16 11:30 APTT 35 SECONDS (21-34) H 11/12/16 11:30 Assessment and Plan (1) Facial paralysis/[place] palsy Status: Acute (2) Uncontrolled hypertension Status: Acute (3) CVA (cerebral vascular accident) Status: Suspected
[2016-11-17] MEDS: Nitroglycerin 2% Ointment Foilpak UD TOP PRN ×2 (01:05→09:25)
[2016-11-17 08:11] VITALS: BP 129/85; PULSE 86; TEMP 98.3
[2016-11-17] MEDS: NIFEdipine 90 mg ER Tab PO SCH (09:26)
[2016-11-17] MEDS: Enoxaparin 40 mg Syringe SC SCH (09:30)
--- NOTE | 2016-11-17 21:13 | CP.PCM.PN ---
Subjective - Date & Time of Evaluation Date of Evaluation: 11/17/16 Time of Evaluation: 10:20 - Subjective Subjective: Patient is stable and I discussed the condition with him. His MRI Brain is negative. CVA is ruled out. Diagnosis is uncontrolled Hypertension that stabilized on treatment,Left Lester's Palsy. Some fluctuations of High Blood Pressure are seen from time to time. Seizures and Encephalopathy are ruled out by a normal EEG. He will be receiving PT as an out patient and will be followed as an outpatient. He needs to exercise his facial muscles with PT and at home will have exercises explained to him. Normal VS negative Carotid Doppler, Normal Lipid Profile, negative Hb A1c, RPR non reactive,Tests for Lester's Palsy are showing high HSV Abs I &II Positive Herpes Zoster, negative [place] Abs as well as other tests. Objective - Vital Signs/Intake and Output Vital Signs (last 24 hours): Temp Pulse Resp BP Pulse Ox 98.3 F 86 20 129/85 97 11/17/16 08:10 11/17/16 08:10 11/17/16 08:10 11/17/16 08:10 11/17/16 08:10 - Labs Labs: PT 11.1 SECONDS (9.7-12.2) 11/12/16 11:30 INR 1.0 11/12/16 11:30 APTT 35 SECONDS (21-34) H 11/12/16 11:30 Assessment and Plan (1) Facial paralysis/[place] palsy Status: Acute (2) Uncontrolled hypertension Status: Resolved (3) CVA (cerebral vascular accident) Status: Ruled-out
--- NOTE | 2016-11-17 22:35 | CP.PCM.DIS ---
Provider - Provider Date of Admission: 11/15/16 14:00 Attending physician: Raz Ogden MD Diagnosis - Discharge Diagnosis (1) CVA (cerebral vascular accident) Status: Ruled-out (2) Facial paralysis/[place] palsy Status: Acute (3) Uncontrolled hypertension Status: Resolved Hospital Course - Lab Results Lab Results: Most Recent Lab Values WBC 3.7 K/uL (4.8-10.8) L 11/12/16 11:30 RBC 5.27 Mil/uL (4.40-5.90) 11/12/16 11:30 Hgb 16.2 g/dL (12.0-18.0) 11/12/16 11:30 Hct 48.8 % (35.0-51.0) 11/12/16 11:30 MCV 92.7 fL (80.0-94.0) 11/12/16 11:30 MCH 30.8 pg (27.0-31.0) 11/12/16 11:30 MCHC 33.2 g/dL (33.0-37.0) 11/12/16 11:30 RDW 14.3 % (11.5-14.5) 11/12/16 11:30 Plt Count 188 K/uL (130-400) 11/12/16 11:30 MPV 9.4 fL (7.2-11.7) 11/12/16 11:30 Neut % (Auto) 46.9 % (50.0-75.0) L 11/12/16 11:30 Lymph % (Auto) 37.2 % (20.0-40.0) 11/12/16 11:30 [place] % (Auto) 14.1 % (0.0-10.0) H 11/12/16 11:30 Eos % (Auto) 1.2 % (0.0-4.0) 11/12/16 11:30 Baso % (Auto) 0.6 % (0.0-2.0) 11/12/16 11:30 Neut # 1.7 K/uL (1.8-7.0) L 11/12/16 11:30 Lymph # 1.4 K/uL (1.0-4.3) 11/12/16 11:30 [place] # 0.5 K/uL (0.0-0.8) 11/12/16 11:30 Eos # 0.0 K/uL (0.0-0.7) 11/12/16 11:30 Baso # 0.0 K/uL (0.0-0.2) 11/12/16 11:30 PT 11.1 SECONDS (9.7-12.2) 11/12/16 11:30 INR 1.0 11/12/16 11:30 APTT 35 SECONDS (21-34) H 11/12/16 11:30 Sodium 144 mmol/L (132-148) 11/12/16 11:30 Potassium 3.9 mmol/L (3.6-5.2) 11/12/16 11:30 Chloride 103 mmol/L (98-107) 11/12/16 11:30 Carbon Dioxide 33 mmol/L (22-30) H 11/12/16 11:30 Anion Gap 12 (10-20) 11/12/16 11:30 BUN 15 mg/dL (9-20) 11/12/16 11:30 Creatinine 1.5 MG/DL (0.8-1.5) 11/12/16 11:30 Est GFR ( Amer) 59 11/12/16 11:30 Est GFR (Non-Af Amer) 49 11/12/16 11:30 POC Glucose (mg/dL) 97 mg/dL (65-110) 11/12/16 10:51 Random Glucose 89 mg/dL (75-110) 11/12/16 11:30 Hemoglobin A1c 5.3 % (4.2-6.5) 11/13/16 09:11 Calcium 9.6 mg/dl (8.6-10.4) 11/12/16 11:30 Total Bilirubin 0.7 mg/dL (0.2-1.3) 11/12/16 11:30 AST 41 U/L (17-59) 11/12/16 11:30 ALT 45 U/L (21-72) 11/12/16 11:30 Alkaline Phosphatase 69 U/L (38-126) 11/12/16 11:30 Total Creatine Kinase 538 U/L (55-170) H 11/12/16 11:30 CK-MB (Mass) 2.51 ng/mL (0.0-3.38) 11/12/16 11:30 Troponin I < 0.0120 ng/mL (0.00-0.120) 11/12/16 11:30 Total Protein 7.7 g/dL (6.3-8.3) 11/12/16 11:30 Albumin 4.4 g/dL (3.5-5.0) 11/12/16 11:30 Globulin 3.3 gm/dL (2.2-3.9) 11/12/16 11:30 Albumin/Globulin Ratio 1.3 (1.0-2.1) 11/12/16 11:30 Triglycerides 81 mg/dL (0-149) 11/13/16 09:11 Cholesterol 185 mg/dL (0-199) 11/13/16 09:11 LDL Cholesterol Direct 123 mg/dL (0-129) 11/13/16 09:11 HDL Cholesterol 51 mg/dL (30-70) 11/13/16 09:11 Angiotensin Convert Enz 14 U/L (9-67) 11/13/16 09:11 Prostate Specific Ag 0.284 ng/mL (0.00-4.0) 11/14/16 08:34 TSH 3rd Generation 0.91 mIU/L (0.46-4.68) 11/13/16 09:11 Rheum Arthritis Panel Negative (NEGATIVE) 11/13/16 09:11 PAULINE 6 Profile Positive (NEGATIVE) H 11/13/16 09:11 PAULINE Titer 1:40 H 11/13/16 09:11 PAULINE Pattern Speckled H 11/13/16 09:11 RPR Nonreactive (NONREACTIVE) 11/13/16 09:11 Hepatitis A IgM Ab Negative (NEGATIVE) 11/13/16 09:11 Hep Bs Antigen Negative (NEGATIVE) 11/13/16 09:11 Hep B Core IgM Ab Negative (NEGATIVE) 11/13/16 09:11 Hepatitis C Antibody Negative (NEGATIVE) 11/13/16 09:11 HSV I IgG Ab 54.10 index H 11/13/16 11:53 HSV II IgG 15.60 index H 11/13/16 11:53 HIV 1&2 Antibody Screen Negative (NEGATIVE) 11/13/16 09:11 VZV IgG Antibody Positive (POSITIVE) 11/13/16 09:11 - Hospital Course Hospital Course: 56 Y/O WITH L FACIAL NERVE PALSY, AND SHE WAS ADMITTED WITH HEADACHE, HIGH BP, AND HE WAS TREATED AND STABILIZED AND DISCHARGE Discharge Exam - Head Exam Head Exam: ATRAUMATIC, NORMAL INSPECTION, NORMOCEPHALIC - Eye Exam Eye Exam: EOMI, Normal appearance, PERRL Pupil Exam: NORMAL ACCOMODATION - ENT Exam ENT Exam: Mucous Membranes Moist, Normal Exam, Normal Oropharynx, TM's Normal Bilaterally - Neck Exam Neck exam: Full Rom, Normal Inspection - Respiratory Exam Respiratory Exam: NORMAL BREATHING PATTERN - Cardiovascular Exam Cardiovascular Exam: REGULAR RHYTHM, +S1, +S2 - GI/Abdominal Exam GI & Abdominal Exam: Normal Bowel Sounds - Neurological Exam Neurological exam: Alert, CN II-XII Intact, Normal Gait, Oriented x3, Reflexes Normal - Psychiatric Exam Psychiatric exam: Normal Affect, Normal Mood Discharge Plan - Discharge Medications Prescriptions: Polyethylene Glycol/Polyvinyl [Artificial Tears] 0.05 ml OS TID #1 bottle Rosuvastatin Calcium [Crestor] 20 mg PO HS #30 tab Losartan 100 mg PO DAILY #30 predniSONE [predniSONE Tab] 40 mg PO DAILY #3 tab NIFEdipine ER [Procardia XL] 90 mg PO DAILY #30 ter Acyclovir [Zovirax] 400 mg PO BID #8 tab - Follow Up Plan Condition: FAIR Disposition: HOME/ ROUTINE Instructions: Nifedipine (By mouth), Prednisone (By mouth), Acyclovir (By mouth ), Rosuvastatin (By mouth), Lester Palsy (DC), Hypertensive Crisis (DC) Additional Instructions: Please f/u with Dr. Ogden office in 1 week - ( [address] [place] [address] - [phone] ) need repeat blood work Continue medication as per Med. Rec. Please use eye patch left eye speach therapy daily x 3 week Referrals: Raz Ogden MD [Staff Provider] -
[2016-11-18 10:51] LABS: SPECIMEN SOURCE Serum
--- NOTE | 2016-11-25 20:30 | CARD ---
APPROVED REPORT EKG Measurement Heart [id number] <Conclusion> Sinus bradycardia Possible Left atrial enlargement Left axis deviation Left ventricular hypertrophy Nonspecific T wave abnormality Abnormal ECG
== END 2016-11-17 11:13 | disposition home or self-care (01) | DRG 74 ==
LOC: C.ER 10:38 → C.9E 16:58 → C.3T 19:07 → OBSVTOIN 11-15 14:00
PROVIDERS: ADMIT Internal Medicine; ATTEND Internal Medicine
DX: G51.0 Bell's palsy (principal); I10 Essential (primary) hypertension; Z91.11 Patient's noncompliance with dietary regimen; Z91.14 Patient's other noncompliance with medication regimen; Z86.73 Personal history of transient ischemic attack (TIA), and cerebral infarction without residual deficits